=== PATIENT | female | born 1980 | race Hispanic/Latino ===

== ENCOUNTER 2016-09-20 16:23 | Emergency (ER) | payer SELFPAY ==
[2016-09-20 16:53] VITALS: TEMP 98; O2SAT 100
--- NOTE | 2016-09-20 17:19 | C.PDOC ---
History Of Present Illness Patient is a 36 y/o female that presents to the ED for evaluation of anxiety. Patient states that her anxiety is causing her to have chest tightness and discomfort. Notes taking more Xanax than usual. Patient states that she also using heroin, and reports last use was today. Patient states she has not been feeling well, and is seeking help. Otherwise, denies any SI/HI, use of other drugs, or any other physical complaints at this time. Time Seen by Provider: 09/20/16 17:13 Chief Complaint (Nursing): Chest Pain History Per: Patient History/Exam Limitations: no limitations Onset/Duration Of Symptoms: Gradual Current Symptoms Are (Timing): Still Present Modifying Factor(s): Other (heroin) Associated Symptoms: Anxiety. denies: Suicidal Thoughts, Suicidal Plan Involuntary Hold By: None Recent travel outside of the [place]: No Additional History Per: Patient Past Medical History Reviewed: Historical Data, Nursing Documentation, Vital Signs Vital Signs: Last Vital Signs Temp 98.0 F 09/20/16 16:52 Pulse 70 09/20/16 18:23 Resp 18 09/20/16 18:23 BP 110/70 09/20/16 18:23 Pulse Ox 100 09/20/16 18:23 Family History: States: Unknown Family Hx Review Of Systems Except As Marked, All Systems Reviewed And Found Negative. Constitutional: Negative for: Fever, Chills Cardiovascular: Positive for: Chest Pain (chest tightness). Negative for: Palpitations, Light Headedness Respiratory: Negative for: Cough, Shortness of Breath Gastrointestinal: Negative for: Nausea, Vomiting, Abdominal Pain, Diarrhea Neurological: Negative for: Headache, Dizziness Psych: Positive for: Anxiety. Negative for: Suicidal ideation Physical Exam - Physical Exam Appears: Non-toxic, No Acute Distress, Other (tearful) Skin: Normal Color, Warm, Dry Head: Atraumatic, Normacephalic Eye(s): bilateral: Normal Inspection, EOMI Nose: Normal Neck: Normal ROM, Supple Chest: Symmetrical Cardiovascular: Rhythm Regular Respiratory: Normal Breath Sounds, No Rales, No Rhonchi, No Wheezing Extremity: Normal ROM Neurological/Psych: Oriented x3, Normal Speech, Other (anxious) ED Course And Treatment O2 Sat by Pulse Oximetry: 100 (on RA) Pulse Ox Interpretation: Normal Medical Decision Making Medical Decision Making: EKG: NS at 70 bpm with normal axis and no ischemic changes [employer] worker contacted 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 Patient was placed on the waiting list and given number for pre- screen. Patient is not suicidal and appropriate and stable for discharge. Patient is also given outpatient resources. Disposition - Disposition Disposition: HOME/ ROUTINE Disposition Time: 17:33 Condition: STABLE Additional Instructions: [facility] at [address] [place] [address]. Please call [phone] or [phone] to arrange appointment. If you need to speak to someone immediately call Crisis Hotline [phone] Please call [phone] or [phone] to inquire about our Detox availability , may speak to coordinator Che Instructions: Polysubstance Abuse (ED) - POA Present On Arrival: None - Clinical Impression Clinical Impression: Polysubstance abuse, Anxiety - PA / [employer] / Resident Statement MD/DO has reviewed & agrees with the documentation as recorded. - Scribe Statement The provider has reviewed the documentation as recorded by the Scribrupa Licona All medical record entries made by the Elenaibrupa were at my direction and personally dictated by me. I have reviewed the chart and agree that the record accurately reflects my personal performance of the history, physical exam, medical decision making, and the department course for this patient. I have also personally directed, reviewed, and agree with the discharge instructions and disposition.
[2016-09-20 18:24] VITALS: BP 110/70; PULSE 70; RESP 18
--- NOTE | 2016-09-23 08:00 | CARD ---
APPROVED REPORT EKG Measurement Heart [id number] <Conclusion> Normal sinus rhythm Normal ECG
== END 2016-09-20 18:24 | disposition home or self-care (01) ==
LOC: C.ER 16:23
DX: F19.10 Other psychoactive substance abuse, uncomplicated (principal); F41.9 Anxiety disorder, unspecified